=== PATIENT | female | born 1945 | race Caucasian/White ===

== ENCOUNTER → 2017-02-18 | Outpatient (CLI) | payer MEDICARE, OTHER ==
[2014-03-03 15:00] VITALS: BP 118/50
[~2017-02-18] MED LIST: ASCO500T PO; ATOR40TA PO; AZEL137S5 NS; CALC-178 PO; CLOB60CR4 TP; CONTRAST GIVEN MC PRN; ESOM40CA PO; FERR240T2 PO; GLUC1TAB71 PO; GUAI600T38 PO; IBUP200T77 PO; IOHEXOL 350 MG/ML 100 ML VIAL. IV ONE; LISI-378 PO; MOME17SP NS; MULT-18 PO; NIFE60TA PO; PSEU1CAP14 PO; SULF1TAB24 PO; TRIA5PAS4 AU; diphenhydrAMINE HCL 25 MG CAPSULE PO PRN
[2017-02-18 09:08] LABS: CREATININE 1.1 mg/dL (0.6-1.0)
--- NOTE | 2017-02-19 07:51 | RAD ---
CTA abdomen and pelvis with and without contrast Indication: Follow-up endovascular repair of abdominal aortic aneurysm. Follow-up type II endoleak. Comparison study: [facility] CTA abdomen and pelvis from 02/13/2016. Contrast material: 75 cc Omnipaque 350 Technique: Preliminary non-IV contrast helical CT images were obtained through abdomen and pelvis. Dynamic IV contrast helical CT images were then performed through abdomen and pelvis and volume rendered three-dimensional and multi planar MIP two-dimensional reconstructions were generated. Delayed postcontrast images were then repeated through abdomen and pelvis, and MIP two-dimensional reconstructions were again generated. Comparison is made with the previous study from 02/13/2016. Vascular findings: 1. A widely patent, bifurcated aortic endograft is again identified. Proximal margin and bilateral iliac margins are unchanged in position. Inferior extension of an additional stent is again identified into left external iliac artery. There is no evidence of endograft migration, fracture, or component separation. The previously demonstrated type II endoleak within right inferior lateral aspect of the residual aneurysm sac is no longer identified. The thrombosed residual aneurysm sac is essentially unchanged in overall size, again measuring 52 to 53 mm in diameter. There is no evidence of aneurysm leak. 2. SMA and IRWIN remain widely patent. Single right main renal artery is widely patent. Previously stented left renal artery is suboptimally evaluated, but remains patent. Right hypogastric artery remains widely patent. 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 External iliac arteries and common femoral arteries remain widely patent and unremarkable. Nonvascular findings: Lung bases remain clear, apart from scattered pleural-parenchymal scars. Liver and spleen are unchanged in size, without localized parenchymal mass. There is no evidence of radiopaque cholelithiasis or biliary obstruction. No pancreatic or right adrenal mass is detected. Fat-containing left adrenal myelolipoma is unchanged remained stable. There is unchanged generalized left renal atrophy, with unchanged minimal nephrolithiasis. There is no evidence of urinary obstruction. No significant retroperitoneal, pelvic, or inguinal lymphadenopathy is seen. Note is again made of multilevel advanced thoracolumbar degenerative disc and facet changes, with exaggeration of lumbar lordosis and with reciprocal thoracolumbar rotoscoliosis. Previously described right groin postoperative fluid collection again measures 8.3 cm in size. Impression: Bifurcated aortic endograft remains widely patent, without migration. The previously present type II endoleak has resolved. The thrombosed residual aneurysm sac is unchanged in size, measuring 52-53 mm in diameter, without evidence of rupture.
== END | disposition home or self-care (01) ==
LOC: CT 08:43
DX: I71.4 Abdominal aortic aneurysm, without rupture (principal)
CPT/HCPCS: 36415; 74174; 82565; 84520; Q0163; Q9967

== ENCOUNTER → 2018-02-17 | Outpatient (CLI) | payer MEDICARE, OTHER ==
[~2018-02-17] MED LIST changes: -ASCO500T PO; -ATOR40TA PO; -AZEL137S5 NS; -CALC-178 PO; -CLOB60CR4 TP; -CONTRAST GIVEN MC PRN; -ESOM40CA PO; -FERR240T2 PO; -GLUC1TAB71 PO; -GUAI600T38 PO; -IBUP200T77 PO; -IOHEXOL 350 MG/ML 100 ML VIAL. IV ONE; -LISI-378 PO; -MOME17SP NS; -MULT-18 PO; -NIFE60TA PO; -PSEU1CAP14 PO; -SULF1TAB24 PO; -TRIA5PAS4 AU; +diphenhydrAMINE HCL 25 MG CAPSULE PO; -diphenhydrAMINE HCL 25 MG CAPSULE PO PRN
[2018-02-17 09:08] LABS: BLOOD UREA NITROGEN 14 mg/dL (7-20)
[2018-02-17 09:08] LABS: GFR 54.5
[2018-02-17] MEDS: IOHEXOL 300 MG/ML 100ML VIAL. IV (09:51)
[2018-02-17] MEDS: diphenhydrAMINE HCL 25 MG CAPSULE PO (09:58)
== END | disposition home or self-care (01) ==
LOC: CT 08:29
DX: I71.4 Abdominal aortic aneurysm, without rupture (principal); K57.30 Diverticulosis of large intestine without perforation or abscess without bleeding; N28.1 Cyst of kidney, acquired
CPT/HCPCS: 36415; 74174; 82565; 84520; Q0163